=== PATIENT | female | born 1960 | race African-American/Black ===

== ENCOUNTER 2023-07-28 20:16 | Inpatient (IN) | payer MEDICARE, OTHER ==
[~2023-07-28] VITALS: Ht 157.5 cm; Wt 69.4 kg
[2023-07-28 20:54] LABS: BASOPHILS % (AUTO) 0.5 % (0.0-2.0); EOSINOPHILS # (AUTO) 0.1 K/uL (0.0-0.7); EOSINOPHILS % (AUTO) 1.6 % (0.0-7.0); HEMATOCRIT 34.5 % (31.2-41.9); HEMOGLOBIN 11.6 g/dL (10.9-14.3); LYMPHOCYTES # (AUTO) 4.6 K/uL (0.8-4.8); LYMPHOCYTES % (AUTO) 59.7 % (20.5-51.5); MEAN CORPUSCULAR HEMOGLOBIN 28.3 uug (24.7-32.8); MEAN CORPUSCULAR HGB CONC 34 g/dL (32.3-35.6); MEAN CORPUSCULAR VOLUME 83.9 fL (75.5-95.3); MONOCYTES # (AUTO) 0.6 K/uL (0.1-1.30); MONOCYTES % (AUTO) 7.5 % (0.0-11.0); NEUTROPHILS # (AUTO) 2.4 K/uL (1.8-8.9); NEUTROPHILS % (AUTO) 30.7 % (38.5-71.5); PLATELET COUNT (AUTO) 263 K/uL (179-408); RED BLOOD CELL COUNT(AUTO) 4.11 MIL/uL (3.63-4.92); RED CELL DISTRIBUTION WIDTH 14.2 % (12.3-17.7); WHITE BLOOD COUNT (AUTO) 7.7 K/uL (3.8-11.8)
[2023-07-28 21:00] LABS: *BILIRUBIN,URIN NEGATIVE (NEGATIVE); *BLOOD, URINE NEGATIVE (NEGATIVE); *CLARITY,URINE CLEAR (CLEAR); *COLOR,URINE YELLOW (YELLOW); *KETONES,URINE NEGATIVE (NEGATIVE); *PROTEIN,URINE NEGATIVE (NEGATIVE); *UROBILINOGEN,URINE 0.2 E.U./dl (NORMAL); LEUKOCYTE ESTERASE ,URINE NEGATIVE (NEGATIVE); NITRITE, URINE NEGATIVE (NEGATIVE); PH,URINE 6.5 (5.0-8.0); UGLUCOSE NEGATIVE (NEGATIVE)
[2023-07-28] MEDS ORDERED: CALC600T35 PO (21:03)
[2023-07-28] MEDS ORDERED: QUET50TA PO (21:03)
[2023-07-28] MEDS ORDERED: SERT50TA PO (21:03)
[2023-07-28] MEDS ORDERED: GABA-532 PO (21:03)
[2023-07-28] MEDS ORDERED: MAGN400O6 PO (21:03)
[2023-07-28] MEDS ORDERED: IBUP-1957 PO (21:03)
[2023-07-28] MEDS ORDERED: LIPA1CAP15 PO (21:03)
[2023-07-28] MEDS ORDERED: FOLI1TAB94 PO (21:03)
[2023-07-28] MEDS ORDERED: METH5TAB70 PO (21:03)
[2023-07-28] MEDS ORDERED: ASPI81TA31 PO (21:03)
[2023-07-28] MEDS ORDERED: NA P133E RC (21:03)
[2023-07-28] MEDS ORDERED: BISA10SU61 RC (21:03)
[2023-07-28] MEDS ORDERED: MEMA10TA PO (21:03)
[2023-07-28] MEDS ORDERED: [UNRECOGNIZED DRUG - CODE] PO (21:03)
[2023-07-28] MEDS ORDERED: LEVO5TAB13 PO (21:03)
[2023-07-28] MEDS ORDERED: PANT40TA49 PO (21:03)
[2023-07-28] MEDS ORDERED: DILT-2 PO (21:03)
[2023-07-28] MEDS ORDERED: ERGO500040 PO (21:03)
[2023-07-28 21:07] LABS: DIFFERENTIAL COMMENT 1
[2023-07-28 21:09] LABS: CALCIUM 8.8 mg/dL (8.5-10.1); CARBON DIOXIDE 30 mmol/L (21-32); CHLORIDE 105 mmol/L (98-107); CREATININE 1.3 mg/dL (0.6-1.3); GLUCOSE 95 mg/dL (74-106); POTASSIUM 3.8 mmol/L (3.5-5.1); SODIUM SERUM 141 mmol/L (136-145); UREA NITROGEN, BLOOD 28 mg/dL (7-18)
[2023-07-28 21:10] LABS: ETHANOL < 3 MG/DL (0-10)
[2023-07-28 21:16] LABS: *AMPHETAMINE, URINE NEGATIVE (NEGATIVE); *BARBITURATE, URINE NEGATIVE (NEGATIVE); *BENZODIAZEPINE, URINE NEGATIVE (NEGATIVE); *CANNABINOID, URINE NEGATIVE (NEGATIVE); *COCCAINE, URINE NEGATIVE (NEGATIVE); *OPIATE, URINE NEGATIVE (NEGATIVE); *PHENCYCLIDINE SCREEN,URINE NEGATIVE (NEGATIVE)
[2023-07-28 21:16] LABS: ALANINE AMINOTRANSFERASE 20 U/L (14-59); ALBUMIN 3.7 g/dL (3.4-5.0); ALKALINE PHOSPHATASE 114 U/L (50-136); ASPARTATE AMINOTRANSFERASE 10 U/L (15-37); BILIRUBIN,TOTAL 0.3 mg/dL (0.2-1.0); TOTAL PROTEIN, SERUM 7.5 g/dL (6.4-8.2)
[2023-07-28 21:17] LABS: FENTANYL, URINE NEGATIVE (NEGATIVE)
[2023-07-28 21:18] LABS: ACETAMINOPHEN < 2.0 ug/mL (10-30)
[2023-07-29 01:00] VITALS: BP 156/79; TEMP 97.3; O2SAT 100
[2023-07-29] MEDS ORDERED: MAGNESIUM HYDROXIDE 30 ML LIQUID UDC PO PRN ×2 (01:00→10:45)
[2023-07-29] MEDS ORDERED: MAG HYDROX/AL HYDROX/SIMETH 30 ML LIQUID UDC PO PRN (01:00)
[2023-07-29] MEDS ORDERED: ZOLPIDEM 5 MG TABLET PO PRN (01:00)
[2023-07-29] MEDS ORDERED: ACETAMINOPHEN 325 MG TABLET PO PRN (01:00)
[2023-07-29] MEDS: BLOOD SUGAR DIAGNOSTIC 1 EACH STRIP VI ONE (01:00)
[2023-07-29 07:51] VITALS: BP 129/69; TEMP 98; O2SAT 99
[2023-07-29] MEDS ORDERED: ERGOCALCIFEROL 50,000 UNIT CAPSULE PO SCH (10:45)
[2023-07-29] MEDS ORDERED: GABA-532 PO (10:54)
[2023-07-29 16:03] VITALS: BP 140/81; TEMP 98; O2SAT 100
[2023-07-29] MEDS: ASPIRIN 81 MG TAB.CHEW PO SCH (16:07)
[2023-07-29] MEDS: DIVALPROEX 125 MG TABLET.DR PO SCH (16:07)
[2023-07-29] MEDS: DILTIAZEM HCL CD 120 MG CAP.SR.24H PO SCH (16:09)
[2023-07-29] MEDS: IBUPROFEN 800 MG TABLET PO SCH (16:10)
[2023-07-29] MEDS ORDERED: Medication Not On Formulary EA (Lipase/Protease/Amylase (Creon Dr 36,000 Units Capsule) PO SCH (17:00)
[2023-07-29] MEDS: LIPASE/PROTEASE/AMYLASE 4200 UNITS CAPSULE.DR PO SCH (17:03)
[2023-07-29 20:00] VITALS: BP 146/74; TEMP 97.8; O2SAT 100
[2023-07-29] MEDS: CETIRIZINE HCL 10 MG TABLET PO SCH (21:01)
[2023-07-29] MEDS: OLANZAPINE 2.5 MG TABLET PO SCH (21:01)
[2023-07-30] MEDS: PANTOPRAZOLE SODIUM 40 MG TABLET.DR PO SCH (06:42)
[2023-07-30 07:30] VITALS: BP 117/81; TEMP 97.8; O2SAT 100
[2023-07-30] MEDS: CALCIUM CARBONATE 600 MG TABLET PO SCH (08:41)
[2023-07-30] MEDS: FOLIC ACID 1 MG TABLET PO SCH (08:42)
[2023-07-30] MEDS ORDERED: Medication Not On Formulary EA (Levocetirizine Dihydrochloride 5 MG) PO SCH (09:00)
[2023-07-30 16:45] VITALS: BP 119/65; TEMP 97.9; O2SAT 99
[2023-07-30 20:00] VITALS: BP 144/73; TEMP 97.7; O2SAT 100
[2023-07-31 08:53] VITALS: BP 132/62; TEMP 97.8; O2SAT 97
[2023-07-31 16:54] VITALS: BP 157/73; TEMP 97.9; O2SAT 98
[2023-07-31 19:58] VITALS: BP 138/75; TEMP 98.1; O2SAT 97
[2023-08-01 08:46] VITALS: BP 138/73; TEMP 98.3; O2SAT 99
[2023-08-01] MEDS: ERGOCALCIFEROL 50,000 UNIT CAPSULE PO SCH (08:49)
[2023-08-01 16:09] VITALS: BP 138/76; TEMP 98.1; O2SAT 99
[2023-08-01] MEDS: DIVALPROEX 125 MG TABLET.DR PO SCH (16:24)
[2023-08-01 20:02] VITALS: BP 155/82; TEMP 98.2; O2SAT 99
[2023-08-02 07:30] VITALS: BP 134/67; TEMP 98.4; O2SAT 100
[2023-08-02 15:00] VITALS: BP 120/76; TEMP 98.2; O2SAT 98
[2023-08-02] MEDS: MEMANTINE HCL 5 MG TABLET PO SCH (16:44)
[2023-08-02 23:00] VITALS: BP 162/78; TEMP 98; O2SAT 98
[2023-08-03 12:58] VITALS: BP 127/51; TEMP 97.7; O2SAT 100
[2023-08-03 18:21] VITALS: BP 133/71; TEMP 98.6; O2SAT 97
[2023-08-03 20:00] VITALS: BP 133/70; TEMP 98; O2SAT 99
[2023-08-04 08:12] VITALS: BP 122/58; TEMP 98.4; O2SAT 99
[2023-08-04] MEDS ORDERED: DIVALPROEX 125 MG TABLET.DR PO SCH (09:00)
[2023-08-04] MEDS: DIVALPROEX 250 MG TABLET.DR PO SCH (09:30)
[2023-08-04 15:31] VITALS: BP 121/71; TEMP 98; O2SAT 99
[2023-08-04 20:00] VITALS: BP 138/76; TEMP 97.7; O2SAT 100
[2023-08-05 08:05] VITALS: BP 104/53; TEMP 98; O2SAT 96
[2023-08-05 15:34] VITALS: BP 135/46; TEMP 98; O2SAT 100
[2023-08-05 19:47] VITALS: BP 153/75; TEMP 98.1; O2SAT 98
[2023-08-06 08:11] VITALS: BP 136/66; TEMP 97.5; O2SAT 98
[2023-08-06 16:57] VITALS: BP 143/83; TEMP 97.6; O2SAT 98
[2023-08-07 07:48] VITALS: BP 120/54; TEMP 97.5; O2SAT 99
[2023-08-07 08:52] LABS: BASOPHILS # (AUTO) 0.1 K/UL (0.0-0.2); BASOPHILS % (AUTO) 0.9 % (0.0-2.0); EOSINOPHILS # (AUTO) 0.1 K/uL (0.0-0.7); HEMATOCRIT 40.2 % (31.2-41.9); HEMOGLOBIN 12.7 g/dL (10.9-14.3); LYMPHOCYTES # (AUTO) 3.3 K/uL (0.8-4.8); LYMPHOCYTES % (AUTO) 53.4 % (20.5-51.5); MEAN CORPUSCULAR HGB CONC 32 g/dL (32.3-35.6); MEAN CORPUSCULAR VOLUME 85.3 fL (75.5-95.3); MONOCYTES # (AUTO) 0.5 K/uL (0.1-1.30); MONOCYTES % (AUTO) 7.6 % (0.0-11.0); NEUTROPHILS # (AUTO) 2.2 K/uL (1.8-8.9); NEUTROPHILS % (AUTO) 36.1 % (38.5-71.5); PLATELET COUNT (AUTO) 273 K/uL (179-408); RED BLOOD CELL COUNT(AUTO) 4.72 MIL/uL (3.63-4.92); RED CELL DISTRIBUTION WIDTH 14.4 % (12.3-17.7); WHITE BLOOD COUNT (AUTO) 6.2 K/uL (3.8-11.8)
[2023-08-07 09:03] LABS: ALBUMIN 3.9 g/dL (3.4-5.0); BILIRUBIN,TOTAL 0.5 mg/dL (0.2-1.0); CALCIUM 9.7 mg/dL (8.5-10.1); POTASSIUM 3.6 mmol/L (3.5-5.1); TOTAL PROTEIN, SERUM 7.8 g/dL (6.4-8.2)
[2023-08-07 16:48] VITALS: BP 124/75; TEMP 97.8; O2SAT 99
[2023-08-07 20:00] VITALS: BP 143/82; TEMP 98; O2SAT 98; O2SAT 99
[2023-08-07] MEDS: OLANZAPINE 2.5 MG TABLET PO SCH (20:21)
[2023-08-08 08:01] VITALS: BP 124/83; TEMP 98; O2SAT 99
[2023-08-08 15:47] VITALS: BP 108/71; TEMP 98.1; O2SAT 99
[2023-08-08 19:57] VITALS: BP 134/82; TEMP 98.2; O2SAT 100
[2023-08-09 07:30] VITALS: BP 117/69; TEMP 98.4; O2SAT 98
[2023-08-09 08:48] LABS: BASOPHILS # (AUTO) 0.1 K/UL (0.0-0.2); BASOPHILS % (AUTO) 1.8 % (0.0-2.0); EOSINOPHILS # (AUTO) 0.1 K/uL (0.0-0.7); EOSINOPHILS % (AUTO) 1.2 % (0.0-7.0); HEMATOCRIT 39.5 % (31.2-41.9); HEMOGLOBIN 12.9 g/dL (10.9-14.3); LYMPHOCYTES % (AUTO) 44.3 % (20.5-51.5); MEAN CORPUSCULAR HEMOGLOBIN 27.6 uug (24.7-32.8); MEAN CORPUSCULAR HGB CONC 33 g/dL (32.3-35.6); MEAN CORPUSCULAR VOLUME 84.7 fL (75.5-95.3); MONOCYTES # (AUTO) 0.6 K/uL (0.1-1.30); MONOCYTES % (AUTO) 8.5 % (0.0-11.0); NEUTROPHILS % (AUTO) 44.2 % (38.5-71.5); PLATELET COUNT (AUTO) 259 K/uL (179-408); RED BLOOD CELL COUNT(AUTO) 4.66 MIL/uL (3.63-4.92); RED CELL DISTRIBUTION WIDTH 14.3 % (12.3-17.7); WHITE BLOOD COUNT (AUTO) 6.7 K/uL (3.8-11.8)
[2023-08-09 08:52] LABS: DIFFERENTIAL COMMENT 1
[2023-08-09 09:11] LABS: THYROID STIMULATING HORMONE 1.508 mIU/mL (0.358-3.740)
[2023-08-09 09:40] LABS: ALBUMIN 3.8 g/dL (3.4-5.0); BILIRUBIN,TOTAL 0.6 mg/dL (0.2-1.0); CALCIUM 9.4 mg/dL (8.5-10.1); CREATININE 1.2 mg/dL (0.6-1.3); MAGNESIUM 2.3 mg/dL (1.8-2.4); PHOSPHOROUS 4.1 mg/dL (2.5-4.9); POTASSIUM 3.6 mmol/L (3.5-5.1); TOTAL PROTEIN, SERUM 7.9 g/dL (6.4-8.2)
[2023-08-09 15:09] VITALS: BP 117/71; TEMP 98; O2SAT 99
[2023-08-09 20:00] VITALS: BP 132/75; TEMP 98.8; O2SAT 100
[2023-08-10 08:00] VITALS: BP 115/61; TEMP 98.2; O2SAT 98
[2023-08-10 08:10] VITALS: BP 115/61
== END 2023-08-10 15:15 | DRG 885 ==
LOC: ER 20:25 → GPS 23:06
PROVIDERS: ADMIT Psychiatry & Neurology Psychiatry; ATTEND Nurse Practitioner Acute Care
DX: F39 Unspecified mood [affective] disorder (principal); F03.92 Unspecified dementia, unspecified severity, with psychotic disturbance; K90.9 Intestinal malabsorption, unspecified; K86.1 Other chronic pancreatitis; F03.94 Unspecified dementia, unspecified severity, with anxiety; F10.11 Alcohol abuse, in remission; K21.9 Gastro-esophageal reflux disease without esophagitis; Z79.899 Other long term (current) drug therapy; Z86.718 Personal history of other venous thrombosis and embolism; I10 Essential (primary) hypertension; M16.0 Bilateral primary osteoarthritis of hip; Z79.82 Long term (current) use of aspirin; E66.9 Obesity, unspecified; Z68.28 Body mass index [BMI] 28.0-28.9, adult; R79.89 Other specified abnormal findings of blood chemistry; Z87.891 Personal history of nicotine dependence; Z86.39 Personal history of other endocrine, nutritional and metabolic disease
CPT/HCPCS: 36415; 80164; 83735; 84100; 84443; 85025; G0480; J3490